=== PATIENT | male | born 1990 | race African-American/Black ===

== ENCOUNTER 2018-08-15 23:35 | Emergency (ER) | payer OTHER ==
[~2018-08-15] VITALS: Ht 182.9 cm; Wt 122.5 kg
[~2018-08-15 23:35] MED LIST: BENADRYL25 MG PO; EPIPEN0.3 MG/0.3 IM; NAPROSYN500 MG PO; PREDNISONE50 MG PO
[2018-08-15] MEDS ORDERED: NEURONTIN100 MG PO (23:50)
[2018-08-16 01:41] VITALS: BP 143/85
== END 2018-08-16 01:41 | disposition home or self-care (01) ==
LOC: ER 23:35
DX: S61.011A Laceration without foreign body of right thumb without damage to nail, initial encounter (principal); W26.0XXA Contact with knife, initial encounter; Y93.G1 Activity, food preparation and clean up; Y92.89 Other specified places as the place of occurrence of the external cause; Y99.8 Other external cause status

== ENCOUNTER 2021-08-11 21:40 | Emergency (ER) | payer OTHER ==
[~2021-08-11] VITALS: Ht 182.9 cm; Wt 125.7 kg
[~2021-08-11 21:40] MED LIST changes: +NEURONTIN100 MG PO
[2021-08-11 22:56] LABS: ABSOLUTE NEUTROPHILS 3.9 thou/uL (1.4-8.2); BASOPHILS 0.7 % (0.0-2.0); EOSINOPHILS 8.4 % (0.0-3.0); HEMATOCRIT 44.4 % (42.0-52.0); HEMOGLOBIN 14.8 gm/dL (14.0-18.0); LYMPHOCYTES 40.3 % (24.0-44.0); MCH 30.5 pg (26.0-34.0); MCHC 33.3 g/dL (28.0-37.0); MCV 91.3 fL (80.0-100.0); MONOCYTES 7.5 % (1.0-8.0); PLATELET COUNT 276 thou/uL (150-400); POLYS 43.1 % (36.0-66.0); RBC 4.86 mil/uL (4.50-6.00); RDW 13.5 % (10.5-14.5); WBC 9.1 thou/uL (4.0-11.0)
[2021-08-11 22:58] LABS: CREATININE 1.2 mg/dL (0.7-1.3); POTASSIUM 3.7 mmol/L (3.5-5.1)
[2021-08-12 00:14] VITALS: BP 124/83
--- NOTE | 2021-08-12 07:11 | EKG ---
[address] [address] [place] [address] ELECTROCARDIOGRAM REPORT Name: ESTEPHANIE DIGGSIVONNEFlavia Room #: [facility]P [facility] [id number] Admission: 08/11/21 Attend Phys: Discharge: 08/12/21 Date of : 89 Report #: [id number] [facility] ED Test Date: 2021-08-11 Test Time: 21:46:17 Pat Name: ESTEPHANIE DIGGS Department: Room: Gender: M Industrial Roofer Helper: CEM : 1990 Requested By: Feliciano Morrow Order Number: [id number] MD: Leonides Baron Measurements Intervals [place] Rate: 98 P: 0 LA: 159 QRS: 33 QRSD: 98 T: 12 QT: 340 QTc: 435 Interpretive Statements Sinus rhythm RSR' in V1 or V2, right VCD or RVH Compared to ECG 06/18/2012 16:31:05 Right ventricular hypertrophy now present RSR' in V1 or V2 now present Sinus tachycardia no longer present Electronically Signed On 08-12-2021 7:10:52 [employer] RECOR[employer] CLERK by Leonides Baron [email or web address] <ELECTRONICALLY SIGNED> By: Leonides Baron MD, [facility] 08/12/21 0710 45 Leonides Baron MD, [facility] /EPI
== END 2021-08-12 00:15 | disposition home or self-care (01) ==
LOC: ER 21:40
PROVIDERS: Emergency Medicine
DX: R07.89 Other chest pain (principal); F12.90 Cannabis use, unspecified, uncomplicated; Z98.890 Other specified postprocedural states